=== PATIENT | female | born 1980 | race Caucasian/White ===

== ENCOUNTER 2017-10-27 14:33 | Emergency (ER) | payer MEDICAID ==
[~2017-10-27] VITALS: Ht 162.6 cm; Wt 70.8 kg
[2017-10-27 14:41] VITALS: BP 119/69; Ht 162.6 cm; Wt 70.8 kg
== END 2017-10-27 16:16 | disposition home or self-care (01) ==
LOC: ED 14:33
DX: M62.830 Muscle spasm of back (principal); M25.511 Pain in right shoulder

== ENCOUNTER 2019-12-21 10:46 | Emergency (ER) | payer SELFPAY ==
[~2019-12-21] VITALS: Ht 167.6 cm; Wt 69.4 kg
[2019-12-21 11:01] VITALS: Ht 167.6 cm; Wt 69.4 kg
[2019-12-21 11:28] LABS: PLATELET COUNT 349 x10^3mcL (130-400)
[2019-12-21 11:49] LABS: CALCIUM 8.5 mg/dL (8.5-10.1); CARBON DIOXIDE 25.8 mmol/L (21-32); CHLORIDE SERUM 104 mmol/L (98-107); CREATININE SERUM 0.7 mg/dL (0.6-1.0); GFR1 > 60 mL/min; GLUCOSE SERUM 99 mg/dL (74-106); POTASSIUM SERUM 4.1 mmol/L (3.5-5.1); SODIUM SERUM 137 mmol/L (136-145)
[2019-12-21 11:53] LABS: ALBUMIN 3.8 g/dL (3.4-5.0); ALKALINE PHOSPHATASE 68 U/L (46-116); ALT/SGPT 29 U/L (14-59); AST/SGOT 18 U/L (15-37); BILIRUBIN TOTAL 0.4 mg/dL (0.20-1.00); LIPASE 188 IU/L (73-393); TOTAL PROTEIN, SERUM 7.7 g/dL (6.4-8.2)
[2019-12-21 12:11] LABS: RED CELL DISTRIBUTION WIDTH 17.4 % (11.5-14.5)
[2019-12-21 12:22] LABS: UA SPECIFIC GRAVITY 1.015 (1.005-1.035); microscopic required? YES; urine erythrocyte NEGATIVE (NEGATIVE)
[2019-12-21 12:53] VITALS: BP 102/61
== END 2019-12-21 12:53 | disposition home or self-care (01) ==
LOC: ED 10:46
PROVIDERS: Emergency Medicine
DX: R10.811 Right upper quadrant abdominal tenderness (principal); R11.0 Nausea
CPT/HCPCS: J1885; J7030